=== PATIENT | male | born 1975 | race Caucasian/White ===

== ENCOUNTER → 2016-09-18 | Outpatient (CLI) | payer MEDICARE, OTHER ==
[~2016-09-18] MED LIST: ACTOPLUS MET PO; ACTOPLUSMET PO; AMARYL2 MG PO; ANTI-DIARRHEAL2 M1 PO; AUGMENTIN1 TAB.SR1 PO; AVANDAMET 2 MG/1 TA1 PO; AVANDIA; COLESTID PO; DOXYCYCLINE PO; FLUOROMETHOLONE15 ML OU; IBUPROFEN800 MG PO; INVOKANA100 MG PO; JANUMET 50-1,01 EACH; JANUVIA50 MG PO; LISINOPRIL; LISINOPRIL PO; LISINOPRIL20 MG PO; LOMOTIL WHITE2.5 MG PO; METFORMIN; NADOLOL20 MG; NADOLOL40 MG PO; NATURAL VITA400 UNI2 PO; OMEPRAZOLE20 M1 PO; OMEPRAZOLE40 MG; OPTIVAR OU; PIOGLITAZONE-M1 EACH PO; REGLAN10 MG; REGLAN10 MG PO; RESTASIS32 EA OU; ULTRA A-D2 MG PO; XIFAXAN550 MG PO; ZYRTEC PO; ZYRTEC10 M1 PO; ZYRTEC10 M2 PO; [UNRECOGNIZED DRUG - OTHER]
--- NOTE | ~2016-09-18 | US6 ---
[facility] A Service of [facility] RADIOLOGY TEXT RESULTS PATIENT: NICO HOOKER LOCATION: SGUS : 73 UNIT #: [id number] AGE: [address]: Yash Simmons MD SEX: M ORDER DR: [id number] [address] [address] [id number] O MR#: [id number] Acc #: [id number] NAME: NICO HOOKER : 1975 SEX: M STUDY DATE/TIME: 09/18/2016 9:41 UNIT: SGUS ROOM: STUDY DESCRIPTION: US Abdominal Limited Attending Physician: Yash Simmons M.D. Referring Physician: Yash Simmons M.D. Ordering Physician: Yash Simmons M.D. Primary Care Physician: Yash Simmons M.D. MEDICAL IMAGING REPORT This report is preliminary unless electronic signature is present. EXAM Right quadrant abdominal ultrasound, 09/18/2016 HISTORY 41-year-old male with cirrhosis. Additional stated history of esophageal varices, portal hypertension, portal hypertensive gastropathy, type 2 diabetes. COMPARISON Complete abdominal ultrasound 01/29/2014. MRI abdomen without and with contrast 02/19/2013. FINDINGS The pancreas is completely obscured by bowel gas. The liver demonstrates a diffusely coarsened echotexture in keeping with a stated history of cirrhosis. However, no focal liver lesions are identified on today's examination. The liver measures 14.2 cm in the sagittal plane. No ascites is identified. Right kidney measures 11.5 cm in length without focal cortical lesion, shadowing stone or hydronephrosis. The gallbladder appears free of shadowing stone or sludge. The gallbladder is partially contracted. No definite gallbladder wall thickening is appreciated on today's study. Common bile duct caliber is normal, 2.0 mm. No intrahepatic biliary ductal dilation is identified. Visualized segments of the intrahepatic IVC have an unremarkable gilman-scale appearance. Color flow was documented within the portal vein. IMPRESSION [facility] A Service of [facility] & [facility] RADIOLOGY TEXT RESULTS PATIENT: NIOC HOOK[id number] [birth year] UNIT #: [id number] AGE: [address]: Yash Simmons MD SEX: M ORDER DR: 1. Diffusely echogenic liver in keeping with the stated history of cirrhosis. No focal liver lesions are identified on today's examination. 2. Remainder of the examination is within normal limits. Dictated by... Grace Vazquez M.D. THIS IS AN ELECTRONICALLY VERIFIED REPORT Grace Vazquez M.D. at 09/19/2016 5:28 PM Jake TD: 09/19/2016 12:59 JOB #: [id number] MEDICAL IMAGING REPORT Page 1 of 1
== END | disposition home or self-care (01) ==
LOC: SGUS 09:36
DX: K74.60 Unspecified cirrhosis of liver (principal); I85.00 Esophageal varices without bleeding; K76.6 Portal hypertension; K31.89 Other diseases of stomach and duodenum; E11.9 Type 2 diabetes mellitus without complications
CPT/HCPCS: 76705

== ENCOUNTER → 2016-10-03 | Day surgery (SDC) | payer MEDICARE, OTHER ==
--- NOTE | ~2016-10-03 | OR ---
Unit #: [id number] #: [id number] Patient: NICO HOOKER [address] [address] [place], [place] [address] [id number] O MR#: [id number] NAME: NICO HOOKER. ROOM: Date of Procedure: 10/03/2016 Admission Date: 10/03/2016 Surgeon: Fer Monore M.D. : 1975 Attending Physician: Fer Monroe M.D. Primary Care Physician: Yash Simmons M.D. OPERATIVE REPORT JOB NOTE: CC: VELASQUEZ BECK. PREOPERATIVE DIAGNOSES Dysphagia. The patient has background history of noncirrhotic portal fibrosis and has been seeing Dr. Norris. He has also been extensively evaluated in the past in [facility]. POSTOPERATIVE DIAGNOSES The patient had moderate amount of solid food residue in the gastric cavity indicating gastroparesis. There were also changes of portal hypertensive gastropathy; however, no esophageal varices were seen. RECOMMENDATIONS 1. Small frequent low residue meals. 2. Do not eat late at night. 3. Consider Glucerna as a supplemental meal at dinner time. 4. Reglan 10 mg p.o. t.i.d. half an hour before meals. 5. Follow up in the office in 10 weeks' time. SEDATION USED MAC. DESCRIPTION OF PROCEDURE Following detailed explanation of the potential risks and complications of an upper endoscopy, namely perforation, bleeding, and complication related to sedation, the patient was brought to GI lab and laid in the left lateral decubitus position. Lubricated tip of the Olympus video upper endoscope was passed through the bite block into the proximal esophagus under direct vision. The entire esophageal mucosa was examined and appeared normal. Z-line was nicely demarcated, there being no esophagitis or hiatus hernia. The patient did not have any stricture or ring. The scope was then advanced into the gastric cavity and the latter was insufflated. Mucosa of the fundus, body, and antrum was examined. The patient was noted to have moderate amount of solid food residue in the stomach. There were also changes of portal hypertensive gastropathy involving the fundic mucosa. Prepyloric antral area appeared normal. Pylorus was intubated with visualization of the normal duodenal bulb and second and third part of the duodenum. Upon withdrawal and retroflexion; incisura, cardia, and greater curve was examined and no additional findings were noted. The scope was then withdrawn in the distal esophagus. The entire esophageal mucosa was examined all the way up to pharynx. No additional findings were noted. The patient tolerated the Unit #: [id number] #: [id number] Patient: NICO HOOKER procedure without any postprocedure complications. Dictated by... Kirt Keller/kristina TD: 10/03/2016 11:43 JOB #: [id number] OPERATIVE REPORT Page 1 of 1 X Fer Monroe MD X PROCEDURE OPERATIVE NOTE
== END | disposition home or self-care (01) ==
LOC: COPS 06:05
DX: K76.6 Portal hypertension (principal); K31.89 Other diseases of stomach and duodenum; E11.9 Type 2 diabetes mellitus without complications; I10 Essential (primary) hypertension; G47.30 Sleep apnea, unspecified; K21.9 Gastro-esophageal reflux disease without esophagitis; Z87.19 Personal history of other diseases of the digestive system; Z88.1 Allergy status to other antibiotic agents; Z79.84 Long term (current) use of oral hypoglycemic drugs; Z79.899 Other long term (current) drug therapy; Z98.49 Cataract extraction status, unspecified eye; Z98.890 Other specified postprocedural states
CPT/HCPCS: 82947

== ENCOUNTER 2016-11-14 15:07 | Emergency (ER) | payer MEDICARE ==
[~2016-11-14] VITALS: Ht 162.6 cm; Wt 68.9 kg
--- NOTE | ~2016-11-14 | US140 ---
[facility] A Service [facility] RADIOLOGY TEXT RESULTS PATIENT: NICO HOOKER LOCATION: [facility] : 73 UNIT #: [id number] AGE: [address]: Mechelle Lin MD SEX: M ORDER DR: [id number] [facility] [address] [place], [place] [address] [id number] E MR#: [id number] Acc #: [id number] NAME: NICO HOOKER. : 1975 SEX: M STUDY DATE/TIME: 11/14/2016 17:09 UNIT: [facility] ROOM: STUDY DESCRIPTION: UE Veins Unilat or Ltd Stdy Attending Physician: Mechelle Lin M.D. Ordering Physician: Mechelle Lin M.D. Primary Care Physician: Yash Simmons M.D. MEDICAL IMAGING REPORT This report is preliminary unless electronic signature is present EXAM Unilateral right upper extremity venous Doppler DATE OF STUDY 11/14/2016 HISTORY Right arm pain for one day FINDINGS Shelby-scale imaging, Doppler flow imaging and Doppler wave form analysis. There is no evidence of DVT. There is normal color flow, compressibility, where appropriate respiratory phasicity and / or augmentation throughout the entire right upper extremity deep venous system. There is occlusive thrombus in the above elbow superficial cephalic vein, but the distal cephalic vein and superficial basilic vein are normal. IMPRESSION Positive for superficial venous thrombus in the cephalic vein above the elbow. No evidence of DVT. Dictated by... Timothy Rojas M.D. THIS IS AN ELECTRONICALLY VERIFIED REPORT Timothy Rojas M.D. at 11/15/2016 11:46 AM [facility] A Service [facility] RADIOLOGY TEXT RESULTS PATIENT: NICO HOOKER LOCATION: [facility] : 73 UNIT #: [id number] AGE: [address]: Mechelle Lin MD SEX: M ORDER DR: Katharine TD: 11/14/2016 18:34 JOB #: [id number] MEDICAL IMAGING REPORT Page 1 of 1 COPY
--- NOTE | ~2016-11-14 | CT2 ---
[facility] A Service of [facility] & [facility] RADIOLOGY TEXT RESULTS PATIENT: NICO HOOKER LOCATION: [facility] : 73 UNIT #: [id number] AGE: [address]: Mechelle Lin MD SEX: M ORDER DR: [id number] [facility] [address] [place], [place] [address] [id number] E MR#: [id number] [facility] #: [id number] NAME: NICO HOOKER. : 1975 SEX: M STUDY DATE/TIME: 11/14/2016 19:42 UNIT: [facility] ROOM: STUDY DESCRIPTION: CT Abd and Pelv W Cont Attending Physician: Mechelle Lin M.D. Ordering Physician: Mechelle Lin M.D. Primary Care Physician: Yash Simmons M.D. MEDICAL IMAGING REPORT This report is preliminary unless electronic signature is present EXAM CT abdomen and pelvis, 11/14/2016 HISTORY Abnormal labs per MD today, hyperbilirubinemia, weight loss, decreased appetite since May 2016. Diarrhea, right arm pain. TECHNIQUE This CT exam was performed with one or more of the following radiation dose reduction techniques: automatic exposure control, adjustment of mA and/or kV according to patient size, and iterative reconstruction. FINDINGS CT abdomen pelvis performed with intravenous administration of 100 mL Isovue-370. Enteric contrast not administered. Please see dedicated CT of the chest for full discussion of findings above the diaphragm. The most recent CT of the abdomen and pelvis is dated 06/14/2009. The lung bases are clear. Inferior heart and pericardium unremarkable. Fatty infiltration of the liver. Liver is somewhat small in overall size. Slightly nodular configuration on some images suggesting underlying cirrhosis. The gallbladder is normal. The spleen is enlarged measuring about 13.7 cm in superior to inferior extent. Similar appearance on prior examination. The pancreas is unremarkable. The adrenal glands are unremarkable. No primary kidney abnormality. There is some mass effect on the left kidney from the enlarged spleen. CT PELVIS: No inguinal adenopathy. Urinary bladder unremarkable. No pelvic or retroperitoneal adenopathy. There are small retroperitoneal nodes. Similar appearance on prior study. Prominent esophageal varices more pronounced than on prior study. Stomach unremarkable. There is mild mural prominence in the proximal jejunum. Correlate with any clinical signs or symptoms of enteritis. There is no small bowel dilatation. The [facility] A Service of [facility] & [facility] RADIOLOGY TEXT RESULTS PATIENT: NICO HOOKER LOCATION: [facility] : 73 UNIT #: [id number] AGE: [address]: Mechelle Lin MD SEX: M ORDER DR: appendix is normal. Colon shows uncomplicated distal colonic diverticulosis. No colonic dilatation. Mild vascular prominence throughout the mesentery likely a reflection of the patient's underlying portal hypertension. There is recanalization of the periumbilical veins. There are prominent anterior abdominal wall varices/caput medusae. Similar appearance on prior study but more pronounced today. The visualized aorta is normal in caliber. Bony structures unremarkable. IMPRESSION 1. Somewhat cirrhotic morphology of the liver. Slightly nodular contour in some locations and relatively small overall hepatic size. No focal suspicious parenchymal abnormality is seen. 2. Stable splenomegaly with spleen measuring 13.7 cm in craniocaudal extent. 3. There is evidence of marked portal hypertension. In addition to the splenomegaly there are large distal esophageal varices, upper abdominal varices, and prominent recanalization of the periumbilical veins with anterior abdominal wall varices and prominent intraabdominal omental varices. These findings were present in 2009. They are more pronounced today. Please correlate with the patient's clinical course since that time. 4. There may be mild mural thickening in the proximal jejunum. There is some motion artifact at this level and the appearance could be in part artifactual. Correlate with any clinical signs or symptoms of proximal small bowel enteritis. Remainder of small bowel unremarkable. Appendix normal. Colon shows uncomplicated distal colonic diverticulosis. 5. Generalized mild vascular prominence in the mesentery. Favored to be a reflection of underlying portal hypertension. 6. No abnormal fluid collections and no free air. 7. Gallbladder normal. 8. See remainder of ancillary findings in body of report above. Please see separate dictation for CT of chest. Dictated by... Dajuan Quinn M.D. THIS IS AN ELECTRONICALLY VERIFIED REPORT Dajuan Quinn M.D. at 11/15/2016 2:04 PM Flower TD: 11/14/2016 21:36 JOB #: [id number] MEDICAL IMAGING REPORT Page 1 of 1 COPY
--- NOTE | ~2016-11-14 | CT55 ---
[facility] A Service of [facility] RADIOLOGY TEXT RESULTS PATIENT: NICO HOOKER LOCATION: [facility] : 73 UNIT #: [id number] AGE: [address]: Mechelle Lin MD SEX: M ORDER DR: [id number] [facility] [address] [place], [place] [address] [id number] E MR#: [id number] Acc #: [id number] NAME: NICO HOOKER : 1975 SEX: M STUDY DATE/TIME: 11/14/2016 20:20 UNIT: [facility] ROOM: STUDY DESCRIPTION: CT Chest W Con Attending Physician: Mechelle Lin M.D. Ordering Physician: Mechelle Lin M.D. Primary Care Physician: Yash Simmons M.D. MEDICAL IMAGING REPORT This report is preliminary unless electronic signature is present EXAM CT chest with contrast, 11/14/2016 2020 hours HISTORY 41-year-old man with history of portal hypertension, hyperbilirubinemia, weight loss, decreased appetite since May 2016, right arm pain today with diarrhea. COMPARISON CT abdomen and pelvis 06/14/[address] images were obtained from the thoracic inlet through the adrenal glands. Sagittal and coronal reconstructions were performed. Contrast was Isovue-370 100 mL IV. Total exam DLP for the chest, abdomen an pelvis CT is 1331 mGy-cm. This CT exam was performed with one or more of the following radiation dose reduction techniques: automatic exposure control, adjustment of mA and/or kV according to patient size, and iterative reconstruction. FINDINGS Images through the thoracic inlet demonstrate no thyroid lesion or adenopathy. Images through the chest demonstrate normal caliber aorta. Pulmonary arteries are normal. Cardiac chambers and pericardium are normal. There are no pleural effusions. The lungs are well expanded and clear. Limited views through the upper abdomen demonstrate cirrhotic morphology [facility] A Service of [facility] RADIOLOGY TEXT RESULTS PATIENT: NICO HOOKER LOCATION: [facility] : 73 UNIT #: [id number] AGE: [address]: Mechelle Lin MD SEX: M ORDER DR: to the liver with recanalized umbilical vein and collateral vessels similar to prior exam. IMPRESSION 1. Normal chest CT. 2. Cirrhotic morphology to the liver with recanalized umbilical vein. Please see CT abdomen report for details below the hemidiaphragms. Dictated by... Laila Vora M.D. THIS IS AN ELECTRONICALLY VERIFIED REPORT Laila Vora M.D. at 11/15/2016 2:37 PM SOFIA/tracey TD: 11/14/2016 21:18 JOB #: [id number] MEDICAL IMAGING REPORT Page 1 of 1 COPY
--- NOTE | ~2016-11-14 | CR72 ---
[facility] A Service of [facility] & [facility] RADIOLOGY TEXT RESULTS PATIENT: NICO HOOKER LOCATION: [facility] : 73 UNIT #: [id number] AGE: [address]: Mechelle Lin MD SEX: M ORDER DR: [id number] [facility] [address] [place], [place] [address] [id number] E MR#: [id number] Acc #: [id number] NAME: NICO HOOKER. : 1975 SEX: M STUDY DATE/TIME: 11/14/2016 16:48 UNIT: [facility] ROOM: STUDY DESCRIPTION: CR Chest Single View Portable Attending Physician: Mechelle Lin M.D. Ordering Physician: Mechelle Lin M.D. Primary Care Physician: Yash Simmons M.D. MEDICAL IMAGING REPORT This report is preliminary unless electronic signature is present EXAM Portable chest x-ray; 11/14/2016. HISTORY Right upper chest pain. REPORT Two AP radiograph of the chest are presented. COMPARISON 11/12/2016. FINDINGS Heart [id number] limits of normal in size. Stable. The lungs are well inflated. There is no indication of acute pulmonary disease, pleural effusion or pneumothorax. No suspicious nodule. No acute bony abnormality. Dictated by... Dajuan Quinn M.D. THIS IS AN ELECTRONICALLY VERIFIED REPORT Dajuan Quinn M.D. at 11/15/2016 1:21 PM Miley TD: 11/14/2016 18:54 JOB #: [id number] MEDICAL IMAGING REPORT Page 1 of 1 COPY
--- NOTE | ~2016-11-14 | CR230 ---
[facility] A Service of [facility] RADIOLOGY TEXT RESULTS PATIENT: NICO HOOKER LOCATION: [facility] : 73 UNIT #: [id number] AGE: [address]: Mechelle Lin MD SEX: M ORDER DR: [id number] [facility] [address] [place], [place] [address] [id number] E MR#: [id number] Acc #: [id number] NAME: NICO HOOKER. : 1975 SEX: M STUDY DATE/TIME: 11/14/2016 16:49 UNIT: [facility] ROOM: STUDY DESCRIPTION: CR Shoulder Min 2 View Rt Attending Physician: Mechelle Lin M.D. Ordering Physician: Mechelle Lin M.D. Primary Care Physician: Yash Simmons M.D. MEDICAL IMAGING REPORT This report is preliminary unless electronic signature is present EXAM Right shoulder HISTORY Pain began two weeks ago right shoulder pain short of air with activity. Weight loss. FINDINGS AP internal and external rotation views of the right shoulder are presented with a transscapular view. No traumatic fracture or malalignment. Acromioclavicular and glenohumeral joint relationships normal. Periarticular soft tissues normal. Visualized right ribs normal. Visualized pulmonary parenchyma clear. Dictated by... Dajuan Quinn M.D. THIS IS AN ELECTRONICALLY VERIFIED REPORT Dajuan Quinn M.D. at 11/15/2016 1:21 PM ALVIN/rosalind TD: 11/14/2016 19:04 JOB #: [id number] MEDICAL IMAGING REPORT Page 1 of 1 COPY
[2016-11-14 17:13] LABS: BASOPHIL% 0.9 % (0-2.5); EOSINOPHIL# 0.2 X10e3 (0-0.7); EOSINOPHIL% 3.2 % (0.0-7.0); HEMATOCRIT 42.5 % (38.0-50.0); HEMOGLOBIN 14.5 gm/dL (13.0-16.0); LYMPHOCYTE# 1.2 X10e3 (1.0-3.5); LYMPHOCYTE% 21.9 % (17.0-45.0); MEAN CELL VOLUME 98.9 FL (83-96); MEAN CORPUSCULAR HEMOGLOBIN 33.8 PG (28-34); MEAN CORPUSCULAR HGB CONC 34.2 g/dL (30-36); MEAN PLATELET VOLUME 8.1 FL (6.5-11.5); RED CELL DISTRIBUTION WIDTH 15.8 % (11.0-15.5); WHITE BLOOD COUNT 5.3 X10e3 (4.0-10.5)
[2016-11-14 17:30] LABS: ALBUMIN SERUM 4.5 g/dL (3.5-5.0); BILIRUBIN, DIRECT 0.7 mg/dL (0.0-0.2); BILIRUBIN,INDIRECT 3.1 mg/dL (0.0-0.9); BILIRUBIN,TOTAL 3.8 mg/dL (0.2-2.0); CALCIUM SERUM 9.6 mg/dL (8.4-10.2); GLOM FILT RATE Estimated 92.4 mL/min (>60); POTASSIUM 4.1 mmol/L (3.5-5.1); PROTEIN TOTAL SERUM 7.5 g/dL (6.0-8.3)
[2016-11-14 17:36] LABS: DIFF IND YES; PLATELET COUNT 46 X10e3 (140-420)
[2016-11-14 17:39] LABS: PLATELET ESTIMATE DECREASED (NORMAL)
[2016-11-14 19:38] LABS: URINE SOURCE CLEAN CATCH
[2016-11-14 19:46] LABS: URINE APPEARANCE CLEAR; URINE BILIRUBIN NEG (NEG); URINE BLOOD NEG (NEG); URINE COLOR YELLOW; URINE GLUCOSE 1000 MG/DL (NORM); URINE KETONE 2+ (NEG); URINE LEUKOCYTE ESTERASE NEG (NEG); URINE NITRATE NEG (NEG); URINE PH 6.5 (5-8); URINE PROTEIN NEG (NEG); URINE SPECIFIC GRAVITY 1.005 (1.003-1.035); URINE UROBILINOGEN 4 MG/DL (NORM)
[2016-11-14 19:47] LABS: CULTURE INDICATED? NO
== END 2016-11-14 22:12 | disposition home or self-care (01) ==
LOC: CED 15:07
PROVIDERS: Emergency Medicine
DX: E86.0 Dehydration (principal); K74.60 Unspecified cirrhosis of liver; D69.6 Thrombocytopenia, unspecified; E11.43 Type 2 diabetes mellitus with diabetic autonomic (poly)neuropathy; K31.84 Gastroparesis; Z98.890 Other specified postprocedural states; Z88.1 Allergy status to other antibiotic agents
CPT/HCPCS: 36415; 71010; 71260; 73030; 74177; 80048; 80076; 81003; 82550; 85025; 93971; 96360; 99284; Q9967